=== PATIENT | male | born 1975 | race Two or more races ===

== ENCOUNTER 2017-03-20 16:20 | Emergency (ER) | payer MEDICAID, SELFPAY ==
[~2017-03-20] VITALS: Ht 177.8 cm; Wt 164.6 kg
[2017-03-20 16:21] VITALS: BP 184/115
[2017-03-20] MEDS ORDERED: KETOROLAC 30 MG/1 ML ONE (17:43)
[2017-03-20] MEDS ORDERED: KETOROLAC 30 MG/1 ML IM ONE (18:00)
== END 2017-03-20 17:58 | disposition home or self-care (01) ==
LOC: ED 17:52
DX: M25.462 Effusion, left knee (principal)
CPT/HCPCS: 73564; 93971; 96372; 99284; J1885

== ENCOUNTER 2020-08-04 14:44 | Emergency (ER) | payer OTHER ==
[~2020-08-04] VITALS: Ht 177.8 cm; Wt 161.4 kg
[2020-08-04 14:52] VITALS: BP 133/80
--- NOTE | 2020-08-04 15:20 | NUR ---
PT PRESENTS TO ED WITH C/O RT KNEE PAIN ONSET 2 DAYS AGO, DENIES INJURY/TRAUMA. PT A&O, RESPS EVEN AND UNLABORED. AWAITING PROVIDER AND ORDERS AT THIS TIME.
[2020-08-04] MEDS ORDERED: KETOROLAC 30 MG/1 ML IM ONE (15:30)
--- NOTE | 2020-08-04 15:38 | NUR ---
TASK RN NOTE: REPORT GIVEN TO ENOCH TAMAYO WHO IS ASSUMING CARE.
[2020-08-04] MEDS ORDERED: KETOROLAC 30 MG/1 ML ONE (15:54)
== END 2020-08-04 16:27 | disposition home or self-care (01) ==
LOC: ED 16:20
DX: M17.11 Unilateral primary osteoarthritis, right knee (principal); M25.561 Pain in right knee
CPT/HCPCS: 73564; 96372; 99283; J1885